=== PATIENT | female | born 1975 | race Caucasian/White ===

== ENCOUNTER → 2020-11-01 10:09 | Outpatient (CLI) | payer OTHER, SELFPAY ==
[2020-11-01] MEDS: COVID-19 VACC #1, MRNA(MOD) 100 MCG/0.5 ML VIAL IM (10:24)
== END ==
PROVIDERS: Visit Provider Internal Medicine
DX: Z23 Encounter for immunization (principal)
CPT/HCPCS: 0011A; 91301

== ENCOUNTER → 2020-11-29 09:54 | Outpatient (CLI) | payer OTHER, SELFPAY ==
[2020-11-29] MEDS: COVID-19 VACC #2, MRNA(MOD) 100 MCG/0.5 ML VIAL IM (10:00)
== END ==
PROVIDERS: Visit Provider Internal Medicine
DX: Z23 Encounter for immunization (principal)
CPT/HCPCS: 0012A; 91301

== ENCOUNTER → 2020-12-14 10:21 | Outpatient (CLI) | payer OTHER, SELFPAY ==
--- NOTE | 2020-12-14 10:26 | DI.RAD.S_ITS ---
PROCEDURE: XR CHEST 2V INDICATIONS: sob; hx smoking TECHNIQUE: 2 views of the chest were acquired. COMPARISON: None. FINDINGS: Surgical changes and devices: None. Lungs and pleura: Lungs are clear. No pleural effusions or pneumothorax. Mediastinum: Mediastinal contours are normal. Heart size is normal. Bones and chest wall: No suspicious bony abnormalities. Soft tissues appear unremarkable. IMPRESSION: No acute cardiopulmonary disease. Dictated by: Eric Richardson M.D. on 12/14/2020 at 11:35 Approved by: Eric Richardson M.D. on 12/14/2020 at 11:35
[2020-12-14 13:08] LABS: Add Manual Diff / Slide Review NO; Basophils Absolute Auto 0 /uL (0-100); Basophils Percent Auto 0.7 % (0-2); Eosinophils Absolute Auto 100 /uL (0-450); Eosinophils Percent Auto 1.5 % (2-4); Hemoglobin 13.7 g/dL (12.0-16.0); Lymphocytes Absolute Auto 1800 /uL (1100-4500); Lymphocytes Percent Auto 33.6 % (25-40); Mean Corpuscular HGB Conc 33.4 % (30-36); Mean Corpuscular Hemoglobin 31.8 PG (26-34); Mean Corpuscular Volume 95.2 fL (80-100); Monocytes Absolute Auto 400 /uL (0-900); Monocytes Percent Auto 7.8 % (3-14); Neutrophils Absolute Auto 3100 /uL (1500-7000); Neutrophils Percent Auto 56.4 % (50-75); Platelet Count 288 X10^3/uL (150-400); Red Cell Distribution Width 14.1 % (11.6-14.8); White Blood Cell Count 5.4 X10^3/uL (4.5-11.0)
[2020-12-14 13:41] LABS: Alanine Aminotransferase 16 IU/L (<35); Albumin 4.6 g/dL (3.5-5.0); Albumin Globulin Ratio 1.4 (1.0-2.8); Alkaline Phosphatase 66 U/L (38-126); Aspartate Aminotransferase 32 IU/L (14-36); Bilirubin Total 0.5 mg/dL (0.2-1.3); Blood Urea Nitrogen 14 mg/dL (7-17); Calcium 10.1 mg/dL (8.4-10.2); Carbon Dioxide 28 mmol/L (22-32); Chloride 102 mmol/L (98-107); Estimated Glomerular Filt Rate > 60.0 mL/min (>60); Globulin 3.4 g/dL (1.7-4.1); Glucose 79 mg/dL (70-100); HEMOLYSIS < 15 (0-50); Potassium 4.7 mmol/L (3.4-5.1); Sodium 138 mmol/L (137-145)
[2020-12-14 13:53] LABS: Free T4, Direct Thyroxine 0.88 ng/dL (0.78-2.19)
[2020-12-14 14:07] LABS: Thyroid Stimulating Hormone 1.19 uIU/mL (0.47-4.68)
== END ==
PROVIDERS: PCP Registered Nurse; Referring Provider Registered Nurse; Visit Provider Registered Nurse
DX: R06.02 Shortness of breath (principal); Z87.891 Personal history of nicotine dependence; R20.9 Unspecified disturbances of skin sensation
CPT/HCPCS: 36415; 71046; 80053; 84439; 84443; 85025

== ENCOUNTER → 2020-12-22 08:49 | Outpatient (CLI) | payer OTHER, SELFPAY ==
--- NOTE | 2020-12-22 08:51 | DI.RAD.S_ITS ---
PROCEDURE: XR KNEE LT 3V INDICATIONS: left knee cracking TECHNIQUE: 3 views of the knee were acquired. COMPARISON: None. FINDINGS: Bones: No fractures or dislocations. No suspicious bony lesions. A well corticated ossicle is seen at the lateral aspect of the patella. Small forming osteophytes are seen of the lateral and medial compartments. No joint space narrowing. Soft tissues: No joint effusion. No suspicious soft tissue calcifications. IMPRESSION: Minimal degenerative changes. No acute abnormality. If symptoms persist, consider MRI to evaluate the menisci and ligaments. Dictated by: Mario Sandoval M.D. on 12/22/2020 at 9:42 Approved by: Mario Sandoval M.D. on 12/22/2020 at 9:51
--- NOTE | 2020-12-22 08:51 | DI.RAD.S_ITS ---
PROCEDURE: XR KNEE RT 3V INDICATIONS: feels cracking knee TECHNIQUE: 3 views of the knee were acquired. COMPARISON: None. FINDINGS: Bones: No fractures or dislocations. No suspicious bony lesions. There are small forming osteophytes of the medial and lateral compartments. There is an osteophyte extending laterally from the patella. Soft tissues: No joint effusion. No suspicious soft tissue calcifications. IMPRESSION: No acute abnormality. Minimal degenerative changes. If symptoms persist, consider MRI to evaluate the menisci and ligaments. Dictated by: Mario Sandoval M.D. on 12/22/2020 at 9:51 Approved by: Mario Sandoval M.D. on 12/22/2020 at 9:52
== END ==
PROVIDERS: PCP Registered Nurse; Referring Provider Registered Nurse; Visit Provider Registered Nurse
DX: M25.862 Other specified joint disorders, left knee (principal); M25.861 Other specified joint disorders, right knee
CPT/HCPCS: 73562

== ENCOUNTER → 2021-01-18 10:17 | Outpatient (CLI) | payer OTHER, SELFPAY ==
--- NOTE | 2021-01-18 10:20 | DI.MG.S_ITS ---
BILATERAL DIGITAL SCREENING MAMMOGRAM 3D/2D WITH CAD: 01/18/2021 CLINICAL: Routine screening. Baseline exam. No prior exams were available for comparison. The tissue of both breasts is heterogeneously dense. This may lower the sensitivity of mammography. Current study was also evaluated with a Computer Aided Detection (CAD) system. No significant masses, calcifications, or other findings are seen in either breast. IMPRESSION: NEGATIVE There is no mammographic evidence of malignancy. A 1 year screening mammogram is recommended. This exam was interpreted at Station ID: [id number]. NOTE: For mammograms, a report in lay terms will be sent to the patient. Approximately 15% of breast malignancies will not be visualized mammographically. In the management of a palpable breast mass, a negative mammogram must not discourage biopsy of a clinically suspicious lesion. Electronically Signed By: Jacky bauman/eirk:01/18/2021 10:50:19 letter sent: Normal Exam ACR BI-RADS Category 1: Negative 3341F
== END ==
PROVIDERS: PCP Registered Nurse; Referring Provider Registered Nurse; Visit Provider Registered Nurse
DX: Z12.31 Encounter for screening mammogram for malignant neoplasm of breast (principal)
CPT/HCPCS: 77063; 77067

== ENCOUNTER → 2021-01-24 08:10 | Outpatient (CLI) | payer OTHER, SELFPAY ==
--- NOTE | 2021-01-24 08:11 | DI.US.S_ITS ---
PROCEDURE: US PELVIC COMPLETE INDICATIONS: MIRENA CHECK, UNABLE TO FEEL IUD STRINGS TECHNIQUE: Real-time scanning was performed of the pelvic organs, with image documentation. Additional endovaginal scanning was necessary due to incomplete visualization of the adnexal and endometrial structures by transabdominal scanning. COMPARISON: None. FINDINGS: Uterus: Uterus is normal in size at 8.4 x 3.2 x 5 cm. The endometrium measures 4 mm in combined thickness. An IUD is seen at its expected location. A small amount fluid can be seen along the cervix. A 5 mm likely fibroid can be seen involving the right uterus. Ovaries: The right ovary measures 2.4 x 1.2 x 2.4 cm. The left ovary measures 3.6 x 1.7 x 2 cm and demonstrates a mildly complex 1.5 cm cyst. The ovaries have a normal sonographic appearance. No adnexal masses are seen. Other: No pathologic free abdominal or pelvic fluid. IMPRESSION: The IUD is seen at its expected location. Mildly complex 1.5 cm left ovarian cyst seen, likely related to a resolving hemorrhagic cyst. Dictated by: Mike Ortiz M.D. on 01/24/2021 at 8:30 Approved by: Mkie Ortiz M.D. on 01/24/2021 at 8:33
== END ==
PROVIDERS: PCP Registered Nurse; Referring Provider Registered Nurse; Visit Provider Registered Nurse
DX: Z30.431 Encounter for routine checking of intrauterine contraceptive device (principal); N83.292 Other ovarian cyst, left side
CPT/HCPCS: 76830; 76856

== ENCOUNTER → 2022-02-14 06:48 | Outpatient (CLI) | payer OTHER, SELFPAY ==
[2022-02-14 08:30] LABS: Cholesterol 160 mg/dL (140-199); Glucose 76 mg/dL (70-100); HDL Cholesterol 71 mg/dL (40-60); LDL Cholesterol Calculated 72 mg/dL (<100); Triglycerides 83 mg/dL (35-150)
== END ==
PROVIDERS: PCP Registered Nurse Diabetes Educator; Referring Provider Registered Nurse Diabetes Educator; Visit Provider Registered Nurse Diabetes Educator
DX: Z00.00 Encounter for general adult medical examination without abnormal findings (principal)
CPT/HCPCS: 36415; 80061; 82947

== ENCOUNTER → 2022-02-26 08:59 | Outpatient (CLI) | payer OTHER, SELFPAY ==
--- NOTE | 2022-02-26 09:04 | DI.MG.S_ITS ---
BILATERAL DIGITAL SCREENING MAMMOGRAM 3D/2D WITH CAD: 02/26/2022 CLINICAL: Routine screening. Comparison is made to exam dated: 01/18/2021 [facility]. The tissue of both breasts is heterogeneously dense. This may lower the sensitivity of mammography. Current study was also evaluated with a Computer Aided Detection (CAD) system. No significant masses, calcifications, or other findings are seen in either breast. There has been no significant interval change. IMPRESSION: NEGATIVE There is no mammographic evidence of malignancy. A 1 year screening mammogram is recommended. Based on the Tyrer Cuzick model (a risk assessment model) the patient's lifetime risk is 10.0% and her 10 year risk is 1.7%. According to the ACR, ACS, and NCCN guidelines, an annual breast MRI exam along with mammogram is recommended if the patient's lifetime risk is 20% or greater. This exam was interpreted at Station ID: [id number]. NOTE: For mammograms, a report in lay terms will be sent to the patient. Approximately 15% of breast malignancies will not be visualized mammographically. In the management of a palpable breast mass, a negative mammogram must not discourage biopsy of a clinically suspicious lesion. Electronically Signed By: Mario Sandoval acr/erik:02/26/2022 09:41:47 letter sent: Normal Exam ACR BI-RADS Category 1: Negative 3341F
--- NOTE | 2022-02-26 09:13 | DI.RAD.S_ITS ---
PROCEDURE: XR ANKLE RT MIN 3V INDICATIONS: eval right ankle pain s/p sprain 3 mo ago TECHNIQUE: 3 views of the ankle were acquired. COMPARISON: [facility], CR, XR FOOT 3+ VIEWS RIGHT, 01/05/2020, 13:32. FINDINGS: Bones: No fractures or dislocations. Ankle mortise is normally aligned. No suspicious bony lesions. The talar dome demonstrates no enrrique abnormality. Soft tissues: No tibiotalar joint effusion. Achilles tendon appears normal. IMPRESSION: Normal ankle plain films. If it would be helpful for clinical management decision making, please consider a dedicated, scheduled ankle MRI for further evaluation (assuming that there is no contraindication). Dictated by: Mike Ortiz M.D. on 02/26/2022 at 8:50 Approved by: Mike Ortiz M.D. on 02/26/2022 at 8:51
== END ==
PROVIDERS: PCP Registered Nurse Diabetes Educator; Referring Provider Registered Nurse Diabetes Educator; Visit Provider Registered Nurse Diabetes Educator
DX: Z12.31 Encounter for screening mammogram for malignant neoplasm of breast (principal); S93.401A Sprain of unspecified ligament of right ankle, initial encounter; X58.XXXA Exposure to other specified factors, initial encounter
CPT/HCPCS: 73610; 77063; 77067

== ENCOUNTER → 2022-07-01 08:57 | Outpatient (CLI) | payer OTHER, SELFPAY ==
[2022-07-02 19:37] LABS: Fecal Immunochemical Test Negative (Negative)
== END ==
PROVIDERS: PCP Registered Nurse Diabetes Educator; Referring Provider Registered Nurse Diabetes Educator; Visit Provider Registered Nurse Diabetes Educator
DX: Z12.11 Encounter for screening for malignant neoplasm of colon (principal)
CPT/HCPCS: 82274

== ENCOUNTER 2023-01-20 09:56 | Outpatient (RCR) | payer OTHER, SELFPAY ==
--- NOTE | 2023-01-20 13:10 | PT.OIE ---
Current Diagnoses Low back pain, unspecified (01/20/23) Past Medical History (Last Reviewed 11/16/22 @ 10:54 by RICHIE Stone) Cervical cancer screening Cold extremities Disorder of knee Foot pain (~2018) IUD check up Physical exam Plantar warts Precancerous skin lesion SOB (shortness of breath) Visit Care Team Role Provider Type RICHIE Stone Attending Provider Advanced Teacher Public Health Family Provider Primary Care Provider Referring Provider Specialty: Medical Address: [address] [place] [address], [facility] Email: [email or web address] Physical Therapy Initial Evaluation PT-OP-A Visit Information Start: 01/20/23 12:48 Freq: Status: Active Protocol: Document 01/20/23 10:15 DCW (Rec: 01/20/23 13:06 DCW [id number]) Out-Patient Physical Therapy Visit Information Visit Information Visit Type Initial Evaluation Visit Start Time 10:15 Visit Stop Time 10:50 Total Visit Minutes 35 Visit Number 1 Number of GLUE COOK Visits 0 Evaluation Information Evaluation Date 01/20/23 PT-OP-B Current Condition Start: 01/20/23 12:48 Freq: Status: Active Protocol: Document 01/20/23 10:15 DCW (Rec: 01/20/23 13:06 DCW [id number]) Current Condition History of Current Condition Onset Date ~2 month history Current Complaints occasional recurrent low back pain History of Current Condition Pt is a 47 year old female who suffers from recurrent mild LBP, typically following travel or performing twisting motions. Pt currently feeling pretty much fine, most recent flare-up was in November. Notes she was on a flight, adn typically on an airplane tends to twist herself sideways to sleep, and was then pretty sore/stiff the next few days. Additionally, then tried to pull up a compression stocking and the twisting mtion increased her discomfort, however she was still able to ski all days following this incident. Pt is overall very active, participating in skiing, swimming, yoga, and weightlifting. Pt admits that since she is feeling good now, she wasn't sure she needed to come to her eval, but would like some education on what she can do to help prevent her low back pain from worsening or becoming a chronic problem. PT-OP-C Subjective Start: 01/20/23 12:48 Freq: Status: Active Protocol: Document 01/20/23 10:15 DCW (Rec: 01/20/23 13:06 DCW [id number]) OP-PT Subjective Patient Comments Patient Comments At this point, it is more like something is just not quite right. Patient Questionnaires Oswestry Low Back Index Oswestry Score 1/50 = 2% Oswestry Impairment 1 to 19% Impaired (Score 1-19) PT-OP-F Manual Assessment Start: 01/20/23 12:48 Freq: Status: Active Protocol: Document 01/20/23 10:15 DCW (Rec: 01/20/23 13:06 DCW [id number]) Manual Assessments Soft Tissue Assessment Soft Tissue Mobility Assessment Mild increased tone right posterior external obliques, tenderness to palpation 1/4: complaint of pain PT-OP-K Range of Motion Start: 01/20/23 12:48 Freq: Status: Active Protocol: Document 01/20/23 10:15 DCW (Rec: 01/20/23 13:06 DCW [id number]) Lumbar Spine Range of Motion Lumbar Spine Active Degrees Testing Position Standing Flexion 80 Extension 35 Lateral Flexion Left 51 Lateral Flexion Right 51 Comments Lateral flexion measured in cm from fingertips to floor PT-OP-L Special Tests Start: 01/20/23 12:48 Freq: Status: Active Protocol: Document 01/20/23 10:15 DCW (Rec: 01/20/23 13:06 DCW [id number]) Special Tests Lumbar Spine Special Tests Prone Knee Flexion Test Results Negative Vertical Spine Loading Test Results Negative Straight Leg Raise Test Results Negative Standing Flexion Test Results Negative Slump Test Results Negative Prone Instability Test Test Results Negative Compression Test Results Negative A-P Shearing Test Results Negative Hip Special Tests Piriformis Test Results Negative CHAPITO Test Results Negative PT-OP-M Strength Start: 01/20/23 12:48 Freq: Status: Active Protocol: Document 01/20/23 10:15 DCW (Rec: 01/20/23 13:06 DCW [id number]) Trunk Strength Trunk Manual Muscle Testing Core Stabilization Excellent core contraction, good hold PT-OP-Q Treatments Start: 01/20/23 12:48 Freq: Status: Active Protocol: Document 01/20/23 10:15 DCW (Rec: 01/20/23 13:06 [facility] [id number]) Therapeutic Exercises Supine Exercises Piriformis Stretch Supine Exercise Name Knee ot opposite shoulder Side bilateral LTR Supine Exercise Name LTR Side bilateral Sidelying Exercises Open Book Sidelying Exercise Name Open book Side bilateral Sitting Exercises [place] Sitting Exercise Name [place] Side bilateral PT-OP-T Assessment and Plan Start: 01/20/23 12:48 Freq: Status: Active Protocol: Document 01/20/23 10:15 DCW (Rec: 01/20/23 13:10 [facility] [id number]) Physical Therapy Assessment Rehab Potential Rehabilitation Potential Excellent Assessment Summary Assessment Pt testing entirely negative other than some mild increased tone along right external obliques. Pt instructed on stretching techniques and given an HEP. Pt very motivated to perform independent HEP in addition to her usual activities and exercises. Therapist and patient agree that she has no current deficits, and is unlikely to benefit from any further skilled out-patient Physical Therapy. Pt understands that if she experiences any further pain, functional deficits, or change in symptoms, she will require a new referral in order to return to skilled PT. Physical Therapy Plan Frequency and Duration Frequency of Treatment 1x/Week Plan of Care Start Date 01/20/23 Plan of Care End Date 01/21/23 Therapeutic Interventions Therapeutic Interventions Home Exercise Program, Therapeutic Activities, Therapeutic Exercises Discharge Physical Therapy Discharge Comments No further skilled PT indicated at this time. Next Visit Focus/Plan Next Note Type Discharge Summary
--- NOTE | 2023-01-20 13:11 | PT.OPPOC ---
Physical, Occupational & Speech Therapy At [facility] Current Diagnoses Low back pain, unspecified (01/20/23) Visit Care Team Role Provider Type RICHIE Stone Attending Provider Advanced Composer Teaching Artist Family Provider Primary Care Provider Referring Provider Specialty: Medical Address: [address] [place] [address], [facility] Email: [email or web address] Plan Of Care PT-OP-T Assessment and Plan Start: 01/20/23 12:48 Freq: Status: Active Protocol: Document 01/20/23 10:15 DCW (Rec: 01/20/23 13:10 DCW [id number]) Physical Therapy Assessment Rehab Potential Rehabilitation Potential Excellent Assessment Summary Assessment Pt testing entirely negative other than some mild increased tone along right external obliques. Pt instructed on stretching techniques and given an HEP. Pt very motivated to perform independent HEP in addition to her usual activities and exercises. Therapist and patient agree that she has no current deficits, and is unlikely to benefit from any further skilled out-patient Physical Therapy. Pt understands that if she experiences any further pain, functional deficits, or change in symptoms, she will require a new referral in order to return to skilled PT. Physical Therapy Plan Frequency and Duration Frequency of Treatment 1x/Week Plan of Care Start Date 01/20/23 Plan of Care End Date 01/21/23 Therapeutic Interventions Therapeutic Interventions Home Exercise Program, Therapeutic Activities, Therapeutic Exercises Discharge Physical Therapy Discharge Comments No further skilled PT indicated at this time. Next Visit Focus/Plan Next Note Type Discharge Summary Plan of Care Dates Plan of Care Start Date 01/20/23 Plan of Care End Date 01/21/23 Electronically Signed by: Ronald Valdez, PT 01/20/23 1731 If you are in agreement with this Plan of Care, please return a signed and dated copy. I have reviewed this Plan of Care and certify that the skilled therapy services above are required to meet the patient?s needs. Physician Signature Date Printed Name and Credentials Clinical Instructor Signature Printed Name and Credentials
== END 2023-01-21 12:32 | disposition home or self-care (01) ==
LOC: PHYS 09:56
PROVIDERS: Family Provider Registered Nurse Diabetes Educator; PCP Registered Nurse Diabetes Educator; Referring Provider Registered Nurse Diabetes Educator; Visit Provider Registered Nurse Diabetes Educator
DX: M54.50 Low back pain, unspecified (principal)
CPT/HCPCS: 97110; 97161

== ENCOUNTER → 2023-04-07 07:09 | Outpatient (CLI) | payer OTHER, SELFPAY ==
[2023-04-07 08:17] LABS: Hematocrit 39.4 % (36-46); Hemoglobin 13.4 g/dL (12.0-16.0); Mean Corpuscular HGB Conc 33.9 % (30-36); Mean Corpuscular Volume 97.2 fL (80-100); Platelet Count 285 X10^3/uL (150-400); Red Blood Cell Count 4.05 X10^6/uL (4.0-5.2); Red Cell Distribution Width 13.4 % (11.6-14.8); White Blood Cell Count 4.3 X10^3/uL (4.5-11.0)
[2023-04-07 09:11] LABS: Alanine Aminotransferase 24 IU/L (<35); Albumin 4.2 g/dL (3.5-5.0); Albumin Globulin Ratio 1.4 (1.0-2.8); Alkaline Phosphatase 54 U/L (38-126); Aspartate Aminotransferase 32 IU/L (14-36); BUN Creatinine Ratio 13.9 (6-22); Bilirubin Total 0.5 mg/dL (0.2-1.3); Blood Urea Nitrogen 11 mg/dL (7-17); Calcium 9.3 mg/dL (8.4-10.2); Carbon Dioxide 28 mmol/L (22-32); Chloride 103 mmol/L (98-107); Cholesterol 157 mg/dL (140-199); Estimated Glomerular Filt Rate > 60 mL/min (>60); Globulin 2.9 g/dL (1.7-4.1); Glucose 82 mg/dL (70-100); HDL Cholesterol 81 mg/dL (40-60); HEMOLYSIS < 15 (0-50); LDL Cholesterol Calculated 57 mg/dL (<100); Potassium 4.4 mmol/L (3.4-5.1); Sodium 138 mmol/L (137-145); Total Protein 7.1 g/dL (6.3-8.2); Triglycerides 97 mg/dL (35-150)
[2023-04-07 09:36] LABS: TSH w/ Reflex to FT4 1.77 uIU/mL (0.47-4.68)
== END ==
PROVIDERS: Family Provider Registered Nurse Diabetes Educator; PCP Registered Nurse Diabetes Educator; Referring Provider Registered Nurse Diabetes Educator; Visit Provider Registered Nurse Diabetes Educator
DX: Z00.00 Encounter for general adult medical examination without abnormal findings (principal)
CPT/HCPCS: 36415; 80053; 80061; 84443; 85027

== ENCOUNTER → 2023-04-07 07:37 | Outpatient (CLI) | payer OTHER, SELFPAY ==
--- NOTE | 2023-04-07 07:38 | DI.MG.S_ITS ---
BILATERAL DIGITAL SCREENING MAMMOGRAM 3D/2D WITH CAD: 04/07/2023 CLINICAL: Routine screening. Comparison is made to exams dated: 02/26/2022 mammogram and 01/18/2021 mammogram - [facility]. Both breasts are heterogeneously dense, which may obscure small masses (category c / 51-75% glandular tissue). Current study was also evaluated with a Computer Aided Detection (CAD) system. No significant masses, calcifications, or other findings are seen in either breast. There has been no significant interval change. IMPRESSION: NEGATIVE There is no mammographic evidence of malignancy. A 1 year screening mammogram is recommended. Based on the Tyrer Cuzick model (a risk assessment model) the patient's lifetime risk is 12.7% and her 10 year risk is 2.3%. According to the ACR, ACS, and NCCN guidelines, an annual breast MRI exam along with mammogram is recommended if the patient's lifetime risk is 20% or greater. This exam was interpreted at Station ID: [id number]. NOTE: For mammograms, a report in lay terms will be sent to the patient. Approximately 15% of breast malignancies will not be visualized mammographically. In the management of a palpable breast mass, a negative mammogram must not discourage biopsy of a clinically suspicious lesion. Electronically Signed By: Josefina chaney/erik:04/07/2023 08:23:12 letter sent: Normal Exam ACR BI-RADS Category 1: Negative 3341F
== END ==
PROVIDERS: Family Provider Registered Nurse Diabetes Educator; PCP Registered Nurse Diabetes Educator; Referring Provider Registered Nurse Diabetes Educator; Visit Provider Registered Nurse Diabetes Educator
DX: Z12.31 Encounter for screening mammogram for malignant neoplasm of breast (principal)
CPT/HCPCS: 77063; 77067

== ENCOUNTER → 2024-08-17 06:54 | Outpatient (CLI) | payer OTHER, SELFPAY ==
[2024-08-17 07:29] LABS: Hematocrit 40.5 % (36-46); Hemoglobin 13.7 g/dL (12.0-16.0); Mean Corpuscular HGB Conc 33.7 % (30-36); Mean Corpuscular Hemoglobin 32.8 PG (26-34); Mean Corpuscular Volume 97.2 fL (80-100); Platelet Count 342 X10^3/uL (150-400); Red Blood Cell Count 4.17 X10^6/uL (4.0-5.2); Red Cell Distribution Width 13.5 % (11.6-14.8); White Blood Cell Count 5.2 X10^3/uL (4.5-11.0)
[2024-08-17 07:46] LABS: Alanine Aminotransferase 21 IU/L (<35); Albumin 4.5 g/dL (3.5-5.0); Albumin Globulin Ratio 1.6 (1.0-2.8); Alkaline Phosphatase 55 U/L (38-126); Aspartate Aminotransferase 33 IU/L (14-36); BUN Creatinine Ratio 14.8 (6-22); Bilirubin Total 0.5 mg/dL (0.2-1.3); Blood Urea Nitrogen 13 mg/dL (7-17); Calcium 9.6 mg/dL (8.4-10.2); Carbon Dioxide 26 mmol/L (22-32); Chloride 103 mmol/L (98-107); Cholesterol 165 mg/dL (140-199); Estimated Glomerular Filt Rate > 60 mL/min (>60); Globulin 2.9 g/dL (1.7-4.1); Glucose 92 mg/dL (70-100); HDL Cholesterol 80 mg/dL (40-60); HEMOLYSIS < 15 (0-50); LDL Cholesterol Calculated 68 mg/dL (<100); Potassium 4.3 mmol/L (3.4-5.1); Sodium 138 mmol/L (137-145); Total Protein 7.4 g/dL (6.3-8.2); Triglycerides 85 mg/dL (35-150)
[2024-08-17 08:16] LABS: TSH w/ Reflex to FT4 2.09 uIU/mL (0.47-4.68)
== END ==
PROVIDERS: Family Provider Registered Nurse Diabetes Educator; PCP Registered Nurse Diabetes Educator; Referring Provider Registered Nurse Diabetes Educator; Visit Provider Registered Nurse Diabetes Educator
DX: Z00.00 Encounter for general adult medical examination without abnormal findings (principal)
CPT/HCPCS: 36415; 80053; 80061; 84443; 85027

== ENCOUNTER → 2024-08-24 10:25 | Outpatient (CLI) | payer OTHER, SELFPAY ==
--- NOTE | 2024-08-24 10:26 | DI.MG.S_ITS ---
BILATERAL DIGITAL SCREENING MAMMOGRAM 3D/2D WITH CAD: 08/24/2024 CLINICAL: Routine screening. Comparison is made to exams dated: 04/07/2023 mammogram, 02/26/2022 mammogram, and 01/18/2021 mammogram - [facility]. The breasts are heterogeneously dense, which may obscure small masses (category c / 51-75% glandular tissue). Current study was also evaluated with a Computer Aided Detection (CAD) system. There is possible architectural distortion in the right breast middle depth superior region seen on the mediolateral oblique view only. No other significant masses, calcifications, or other findings are seen in either breast. IMPRESSION: INCOMPLETE: NEED ADDITIONAL IMAGING EVALUATION The possible architectural distortion in the right breast is indeterminate. Additional views with possible ultrasound are recommended. Based on the Tyrer Cuzick model (a risk assessment model) the patient's lifetime risk is 12.8% and her 10 year risk is 2.6%. According to the ACR, ACS, and NCCN guidelines, an annual breast MRI exam along with mammogram is recommended if the patient's lifetime risk is 20% or greater. This exam was interpreted at Station ID: [id number]. NOTE: For mammograms, a report in lay terms will be sent to the patient. Approximately 15% of breast malignancies will not be visualized mammographically. In the management of a palpable breast mass, a negative mammogram must not discourage biopsy of a clinically suspicious lesion. Electronically Signed By: Paolo Gonzalez M.D. slc/:08/24/2024 15:21:06 letter sent: Additional Imaging Needed ACR BI-RADS Category 0: Incomplete: Need Additional Imaging Evaluation
== END ==
PROVIDERS: Family Provider Registered Nurse Diabetes Educator; PCP Registered Nurse Diabetes Educator; Referring Provider Registered Nurse Diabetes Educator; Visit Provider Registered Nurse Diabetes Educator
DX: Z12.31 Encounter for screening mammogram for malignant neoplasm of breast (principal); R92.333 Mammographic heterogeneous density, bilateral breasts
CPT/HCPCS: 77063; 77067

== ENCOUNTER 2024-08-31 06:43 | Day surgery (SDC) | payer OTHER, SELFPAY ==
[2024-08-31 07:18] VITALS: BP 140/91; PULSE 68; RESP 16; TEMP 36.2; O2SAT 99
[2024-08-31] MEDS: SODIUM CHLORIDE 0.9% 1,000 ML 84 ML IV (07:25)
--- NOTE | 2024-08-31 07:45 | P.HP_ITS ---
History of Present Illness History of Present Illness Date Patient Seen: 08/31/24 Time Patient Seen: 07:45 Chief complaint: Screening Colonoscopy Narrative: 49-year-old white female presents for initial screening colonoscopy. No family history of colon cancer Crohn's disease or ulcerative colitis [facility] Medical History (Updated 08/31/24 @ 07:46 by Wong Chow MD) Colon cancer screening (~08/31/24) Cervical cancer screening IUD check up Precancerous skin lesion Plantar warts Foot pain (~2018) Disorder of knee SOB (shortness of breath) Cold extremities Physical exam Family History Mother Hypertension Grandfather Cancer Grandmother Hypertension Stroke Grandfather Cancer Hypertension Grandmother Cancer Social History Smoking Status: Never smoker Meds Home Medications and Allergies Allergies Allergy/AdvReac Type Severity Reaction Status Date / Time No Known Drug Allergies Allergy Verified 08/31/24 07:14 Review of Systems Review of Systems ROS: Yes All systems reviewed with the patient and are negative except as otherwise documented Exam Vital Signs (past 8 hours): - 08/31/24 07:18 Temperature 97.1 F L Pulse Rate 68 Respiratory Rate 16 Blood Pressure 140/91 H Pulse Oximetry 99 Oxygen Delivery Method Room Air Oxygen Delivery Method Room Air Narrative Exam Narrative: Gen: NAD, sitting comfortably in bed, appears well HEENT: Sclera are anicteric, head is normocephalic and atraumatic, trachea is midline. CV: RRR, no JVD Resp: clear to auscultation bilaterally, equal chest wall movement bilaterally Abd: soft, nontender, normoactive bowel sounds Ext: no edema, full range of motion Neuro: Cranial nerves II-XII grossly intact, no focal deficits Skin: No erythema or ecchymosis Assessment & Plan Assessment and plan (1) Colon cancer screening: Status: Acute Assessment & Plan narrative: Patient presents for colonoscopy Risks, benefits, alternatives to colonoscopy explained, including but not limited to bowel perforation or other serious complication requiring surgery at less than 1 in 5000 colonoscopies, abdominal pain, cramping or bleeding and less than 1% of colonoscopies, and the chances that we find a diagnosis that would require further intervention of about 2%. Patient agrees to proceed. Time-Based Coding :: [TOTAL MINUTES] spent with patient and on the chart (including review of chart, obtaining history, exam, reviewing outside data, placing orders, documenting exam and treatment plan, and counseling patient) on [DATE].
--- NOTE | 2024-08-31 08:00 | PM.OP.COLON ---
Operative Date/Time/Diagnoses Date of procedure: 08/31/24 Time of procedure: 08:00 Pre-op diagnosis: Colon screening Post-op diagnosis: same Procedure & Clinicians Study performed: Screening colonoscopy Same procedure as scheduled: Yes Indications: Screening Surgeon: Wong Chow Procedure Notes SCOAP/Timeout: Performed Procedure in detail: Time-out was performed. Mac was induced. Patient was placed in left lateral decubitus position. The perineum was inspected without any gross abnormality. Lubricated pediatric colonoscope was inserted and advanced to the cecum. The terminal ileum was intubated. The colonoscope was withdrawn slowly inspecting the circumference of the colon. Very small polyps may have been missed, prep quality was adequate. Retroflexed view of the rectum showed small, non prolapsed nonbleeding internal hemorrhoids. The scope was withdrawn the patient was taken to PACU in good condition. Scope withdrawal time: 6 Sedation minutes: 13 Findings: internal hemorrhoids Specimen(s): none sent Complications: none Post-procedure Recommendations: Colonoscopy in 10 years Follow up: as needed Disposition: PACU
[2024-08-31 08:01] VITALS: BP 111/73; PULSE 72; RESP 13; TEMP 36.2; O2SAT 97
[2024-08-31 08:06] VITALS: BP 119/74; PULSE 61; RESP 21; TEMP 36.7; O2SAT 97
[2024-08-31 08:12] VITALS: BP 119/82; PULSE 61; RESP 20; O2SAT 98
== END 2024-08-31 08:23 | disposition home or self-care (01) ==
PROVIDERS: Family Provider Registered Nurse Diabetes Educator; PCP Registered Nurse Diabetes Educator; Referring Provider Surgery; Visit Provider Surgery
PROC: 0DJD8ZZ Inspection of Lower Intestinal Tract, Via Natural or Artificial Opening Endoscopic (ICD-10-PCS; CPT 45378; principal; 2024-08-31 07:45)
DX: Z12.11 Encounter for screening for malignant neoplasm of colon (principal); K64.8 Other hemorrhoids
CPT/HCPCS: G0121; J2704

== ENCOUNTER → 2024-10-08 11:33 | Outpatient (CLI) | payer OTHER, SELFPAY ==
--- NOTE | 2024-10-08 11:34 | DI.US.S_ITS ---
LIMITED ULTRASOUND OF RIGHT BREAST: 10/08/2024 CLINICAL: Patient returns today to evaluate a focal asymmetry in the right breast. Comparison is made to exams dated: 10/08/2024 mammogram, 08/24/2024 mammogram, 04/07/2023 mammogram, and 02/26/2022 mammogram - [facility]. Color flow ultrasound of the right breast 9 o'clock region was performed. Gilbert scale images of the real-time examination were reviewed. No significant abnormalities were seen sonographically in the right breast. Specifically, no finding to correspond to the patient's screening mammographic abnormality. IMPRESSION: PROBABLY BENIGN No sonographic correlate to the screening mammogram finding. A follow-up mammogram and possible ultrasound in 6 months is recommended to demonstrate stability. Findings and recommendations were conveyed to the patient at time of exam. This exam was interpreted at Station ID: [id number]. Electronically Signed By: Sanjuana saha/:10/08/2024 13:01:26 letter sent: Followup Recommended ACR BI-RADS Category 3: Probably Benign
--- NOTE | 2024-10-08 11:35 | DI.MG.S_ITS ---
UNILATERAL RIGHT DIGITAL DIAGNOSTIC MAMMOGRAM 3D/2D WITH ADDITIONAL VIEWS: 10/08/2024 CLINICAL: Additional evaluation requested from prior study. Comparison is made to exams dated: 08/24/2024 mammogram, 04/07/2023 mammogram, and 02/26/2022 mammogram - [facility]. The breasts are heterogeneously dense, which may obscure small masses (category c / 51-75% glandular tissue). There is a possible developing irregular high density asymmetry with a spiculated margin in the right breast at 9 o'clock middle depth. This is seen in additional views. There is minimal architectural distortion associated with the asymmetry. No other significant masses or calcifications are seen in the breast. IMPRESSION: INCOMPLETE: NEED ADDITIONAL IMAGING EVALUATION The developing irregular high density asymmetry in the right breast persists with additional views but remains indeterminate. An ultrasound is recommended. This was performed immediately following this exam. Based on the Tyrer Cuzick model (a risk assessment model) the patient's lifetime risk is 12.8% and her 10 year risk is 2.6%. According to the ACR, ACS, and NCCN guidelines, an annual breast MRI exam along with mammogram is recommended if the patient's lifetime risk is 20% or greater. This exam was interpreted at Station ID: [id number]. NOTE: For mammograms, a report in lay terms will be sent to the patient. Approximately 15% of breast malignancies will not be visualized mammographically. In the management of a palpable breast mass, a negative mammogram must not discourage biopsy of a clinically suspicious lesion. Electronically Signed By: Sanjuana saha/:10/08/2024 12:30:57 letter sent: Additional Imaging Needed ACR BI-RADS Category 0: Incomplete: Need Additional Imaging Evaluation
== END ==
PROVIDERS: Family Provider Registered Nurse Diabetes Educator; PCP Registered Nurse Diabetes Educator; Referring Provider Registered Nurse Diabetes Educator; Visit Provider Registered Nurse Diabetes Educator
DX: R92.8 Other abnormal and inconclusive findings on diagnostic imaging of breast (principal); R92.333 Mammographic heterogeneous density, bilateral breasts
CPT/HCPCS: 76642; 77065; G0279